=== PATIENT | male | born 1975 | race Caucasian/White ===

== ENCOUNTER → 2023-11-06 11:23 | Outpatient (CLI) | payer OTHER, SELFPAY ==
--- NOTE | 2023-11-06 11:25 | DI.RAD.S_ITS ---
PROCEDURE: XR FINGER LT MIN 2V INDICATIONS: Finger pain TECHNIQUE: AP hand, 2 views of the 3rd finger(s) acquired. COMPARISON: None. FINDINGS: Bones: No fractures or dislocations. No suspicious bony lesions. Soft tissues: No suspicious soft tissue calcifications. No radiodense foreign body identified. IMPRESSION: No acute bony abnormality. No radiodense foreign body identified. Approved by: Amna Tarango M.D.,Ph.D. on 11/06/2023 at 23:54
== END ==
LOC: RAD 11:24
PROVIDERS: PCP Family Medicine; Referring Provider Nurse Practitioner Family; Visit Provider Nurse Practitioner Family
DX: M79.645 Pain in left finger(s) (principal)
CPT/HCPCS: 73140